=== PATIENT | female | born 1955 | race Caucasian/White ===

== ENCOUNTER 2021-02-01 06:16 | Day surgery (SDC) | payer OTHER, BC ==
[2021-01-30 12:38] VITALS: BMI 30.7
[2021-02-01] MEDS ORDERED: LOCK ITEM NR ONE (06:33)
[2021-02-01] MEDS ORDERED: BUPIVACAINE LIPOSOME/PF (EXPAREL) 266 MG/20 ML VIAL ONE (06:46)
[2021-02-01] MEDS ORDERED: MIDAZOLAM HCL 2 MG/2 ML SINGLE DOSE VIAL ONE (06:46)
[2021-02-01] MEDS ORDERED: BUPIVACAINE HCL/PF 0.5% (5MG/ML) 10 ML VIAL ONE (06:46)
[2021-02-01] MEDS ORDERED: SODIUM CHLORIDE 0.9% P/F 10 ML VIAL IJ ONE (06:46)
[2021-02-01] MEDS ORDERED: CELECOXIB 200 MG CAPSULE PO ONE (07:00)
[2021-02-01] MEDS ORDERED: PROPOFOL 20 ML ONE (07:13)
[2021-02-01] MEDS ORDERED: SUCCINYLCHOLINE CHLORIDE 200 MG/10 ML SYRINGE ONE (07:14)
[2021-02-01] MEDS ORDERED: ceFAZolin SODIUM 1 GM VIAL ONE (07:57)
[2021-02-01] MEDS ORDERED: TRANEXAMIC ACID 1000 MG/10 ML VIAL ONE (07:57)
[2021-02-01] MEDS ORDERED: DEXAMETHASONE SOD PHOSPHATE 4 MG/1 ML VIAL ONE (07:57)
[2021-02-01] MEDS ORDERED: ONDANSETRON 4 MG/2 ML VIAL ONE (07:57)
[2021-02-01] MEDS ORDERED: CEFAZOLIN 2 GM in DEXTROSE 5%-WATER - 50 ML IVPB ONE (08:00)
[2021-02-01] MEDS ORDERED: TRANEXAMIC ACID 1000 MG/10 ML VIAL IVPUSH ONE (08:29)
[2021-02-01] MEDS ORDERED: ACETAMINOPHEN 1000 MG/100 ML VIAL (NON FORMULARY) IVPB ONE (10:00)
[2021-02-01] MEDS ORDERED: MAG HYDROX/AL HYDROX/SIMETH 30 ML UNIT-DOSE CUP PO PRN (10:21)
[2021-02-01] MEDS ORDERED: ONDANSETRON 4 MG/2 ML VIAL IVPUSH PRN (10:21)
[2021-02-01] MEDS ORDERED: ACETAMINOPHEN INJECTION 100 ML IVPB ONE (10:21)
[2021-02-01] MEDS ORDERED: MAGNESIUM HYDROX 2400MG/30ML ORAL SUSPENSION 30 ML CUP PO PRN (10:21)
[2021-02-01] MEDS ORDERED: clonazePAM 0.5 MG TABLET PO PRN (10:24)
[2021-02-01] MEDS ORDERED: LACTATED RINGERS SOLUTION 1,000 ML IV SCH (10:30)
[2021-02-01] MEDS ORDERED: ACETAMINOPHEN 1000 MG/100 ML VIAL (NON FORMULARY) IVPB SCH (10:30)
[2021-02-01] MEDS ORDERED: oxyCODONE HCL 5 MG TABLET PO PRN ×2 (10:51)
[2021-02-01] MEDS ORDERED: IBUPROFEN 600 MG TABLET (FP) PO SCH ×2 (12:00)
[2021-02-01 14:11] VITALS: BP 109/63; PULSE 103; TEMP 99.1
[2021-02-01] MEDS ORDERED: ACETAMINOPHEN 500 MG TABLET (FP) PO SCH (16:30)
[2021-02-01] MEDS ORDERED: ACETAMINOPHEN 325 MG TABLET (FP) PO SCH (18:00)
[2021-02-01] MEDS ORDERED: CEFAZOLIN 2 GM/D5W 2 GM/50 ML ML IVPB SCH (18:00)
[2021-02-01] MEDS ORDERED: CALCIUM PO SCH (22:00)
[2021-02-01] MEDS ORDERED: ROSUVASTATIN CA 5 MG TABLET (FP) PO SCH (22:00)
[2021-02-01] MEDS ORDERED: GABAPENTIN 300 MG CAPSULE PO SCH (22:00)
[2021-02-01] MEDS ORDERED: [UNRECOGNIZED DRUG - OTHER] PO SCH (22:00)
[2021-02-01] MEDS ORDERED: SOY PO SCH (22:00)
[2021-02-01] MEDS ORDERED: ASPIRIN COATED 81 MG TABLET.EC PO SCH (22:00)
[2021-02-01] MEDS ORDERED: MELATONIN PO SCH (22:00)
[2021-02-01] MEDS ORDERED: SENNOSIDES/DOCUSATE COMBO (SENNA PLUS) TABLET (UD) PO SCH (22:00)
[2021-02-01] MEDS ORDERED: DULoxetine HCL 20 MG CAPSULE.DR PO SCH (22:00)
[2021-02-02] MEDS ORDERED: PANTOPRAZOLE 40 MG TABLET PO SCH (10:00)
[2021-02-02] MEDS ORDERED: MULTIVITAMINS (DAILY MVI) TABLET (FP) PO SCH (10:00)
[2021-02-02] MEDS ORDERED: CELECOXIB 200 MG CAPSULE PO SCH (10:00)
== END 2021-02-01 15:41 | disposition home or self-care (01) ==
LOC: FASUSAT 06:16 → FM/S 12:28 → FASUSAT 15:41
PROVIDERS: ATTEND Orthopaedic Surgery
PROC: 0SRD0J9 Replacement of Left Knee Joint with Synthetic Substitute, Cemented, Open Approach (ICD-10-PCS; principal; 2021-02-01 08:21)
DX: M17.12 Unilateral primary osteoarthritis, left knee (principal)
CPT/HCPCS: 27447; C1713; 73560-TC-LT-FY; 94760; 97010-GP; 97116-GP; 97162-GP; J0131